=== PATIENT | female | born 1990 | race Caucasian/White ===

== ENCOUNTER 2024-06-18 10:08 | Outpatient (CLI) | payer OTHER | END 2024-06-18 11:02 | disposition home or self-care (01) | LOC: NST 10:08 | PROVIDERS: ATTEND Obstetrics & Gynecology | DX: Z3A.36 36 weeks gestation of pregnancy (principal) ==

== ENCOUNTER 2024-06-25 11:23 | Inpatient (IN) | payer OTHER ==
[~2024-06-25] VITALS: Ht 160 cm; Wt 3.2 kg
[2024-06-25 13:48] LABS: HEMATOCRIT 32.1 % (36.0-45.00); HEMOGLOBIN 10.7 g/dL (12.0-15.00); MEAN CELL VOLUME 81.4 fL (80.00-100.00); MEAN CORPUSCULAR HEMOGLOBIN 27.1 pg (27.00-32.0); MEAN CORPUSCULAR HGB CONC 33.3 g/dl (32.0-36.0); PLATELET COUNT 191 K/uL (150-450); RED BLOOD COUNT 3.95 M/uL (4.00-6.00); RED CELL DISTRIBUTION WIDTH 13.5 % (11.5-14.5)
[2024-06-25 14:06] LABS: PH,URINE 6.5 (5.0-8.0); URINE APPEARANCE Clear; URINE BILIRRUBIN Negative (NEGATIVE); URINE BLOOD Negative; URINE COLOR Yellow; URINE GLUCOSE Negative (NEGATIVE); URINE KETONE Negative (NEGATIVE); URINE LEUKOCYTE Negative; URINE NITRATE Negative; URINE PROTEIN Negative (NEGATIVE); URINE UROBILINOGEN 0.2 E.U./dl
[2024-06-25 14:09] LABS: URINE BACTERIA 1084.3 uL (0.0-1933); URINE EPITHELIAL CELLS 16.1 uL (0.0-38.8); URINE WBC 7.2 uL (0.0-23.2)
[2024-06-25 14:11] LABS: INR < 0.93; PARTIAL THROMBOPLASTIN TIME 23.8 SECONDS (22.0-34.0); PROTHROMBIN TIME 9.7 SECONDS (9.0-11.5)
[2024-06-25 14:58] LABS: ALBUMIN 2.8 gm/dL (3.4-5.0); BILIRUBIN TOTAL 0.58 mg/dL (0.3-1.2); CALCIUM 9.8 mg/dL (8.5-10.1); CREATININE SERUM 0.57 mg/dL (0.55-1.02); GFR 120.01; GLOBULINA 3.6 G/DL (2.4-3.5); POTASSIUM 4.24 mEq/L (3.5-5.1); TOTAL PROTEIN 6.4 gm/dL (6.4-8.2)
[2024-06-25 15:02] LABS: URINE RBC 1.4 uL (0.0-20.8)
[2024-07-07 07:16] VITALS: BP 127/80
[2024-07-07] MEDS ORDERED: CEFAZOLIN SODIUM 1,000 MG VIAL IV SCH (12:15)
[2024-07-07] MEDS ORDERED: OXYTOCIN 10 UNITS/ML VIAL IV SCH (12:15)
[2024-07-07] MEDS ORDERED: ERYTHROMYCIN BASE OPHT 1GM EACH TUBE OP SCH (12:15)
[2024-07-07] MEDS ORDERED: MORPHINE SULFATE 4 MG/ML CARTRIDGE IV PRN (12:15)
[2024-07-07] MEDS ORDERED: CITRIC ACID/SODIUM CITRATE 30 ML BLIST.PACK PO SCH (12:15)
[2024-07-07] MEDS ORDERED: OXYTOCIN 1,000 ML IV SCH (12:15)
[2024-07-07] MEDS ORDERED: MORPHINE SULFATE 4 MG/ML VIAL IV ONE ×2 (14:10→15:30)
[2024-07-07 18:37] VITALS: BP 135/72
[2024-07-08 01:15] VITALS: BP 136/71
[2024-07-08 09:00] VITALS: BP 125/77
[2024-07-08] MEDS ORDERED: IBUprofen 400 MG TABLET PO SCH (09:00)
[2024-07-08 11:28] LABS: HEMATOCRIT 28.8 % (36.0-45.00); HEMOGLOBIN 9.8 g/dL (12.0-15.00); MEAN CELL VOLUME 79.6 fL (80.00-100.00); MEAN CORPUSCULAR HEMOGLOBIN 27.1 pg (27.00-32.0); MEAN CORPUSCULAR HGB CONC 34.1 g/dl (32.0-36.0); PLATELET COUNT 181 K/uL (150-450); RED BLOOD COUNT 3.62 M/uL (4.00-6.00); RED CELL DISTRIBUTION WIDTH 13.9 % (11.5-14.5)
[2024-07-08 16:00] VITALS: BP 107/66
[2024-07-09 02:50] VITALS: BP 125/78
[2024-07-09] MEDS ORDERED: OxyCODONE HCL 5 MG TABLET (ROXICODONE) PO PRN (06:00)
[2024-07-09] MEDS ORDERED: IRON/V.C/V.B12/FOLIC A/VIT. E 1 CAPL CAPLET PO SCH (09:00)
[2024-07-09 09:49] VITALS: BP 132/75
[2024-07-09 18:26] VITALS: BP 122/78
[2024-07-10] VITALS: BP 115/67
[2024-07-10 07:56] VITALS: BP 136/77
[2024-07-10] MEDS ORDERED: OXYCODONE HCL5 MG PO (10:56)
[2024-07-10] MEDS ORDERED: KETO10TA2 PO (10:56)
== END 2024-07-10 13:04 | disposition home or self-care (01) | DRG 788 ==
LOC: LAB 11:23 → EDSTATUS 11:25 → OB/GYN 11:27 → O/R 07-07 06:40 → OB/GYN 07-07 06:40
PROVIDERS: ADMIT Obstetrics & Gynecology; ATTEND Obstetrics & Gynecology
PROC: 4A1HXCZ Monitoring of Products of Conception, Cardiac Rate, External Approach (ICD-10-PCS; 2024-07-07)
PROC: 10D00Z1 Extraction of Products of Conception, Low, Open Approach (ICD-10-PCS; principal; 2024-07-07 10:15)
DX: O34.211 Maternal care for low transverse scar from previous cesarean delivery (principal); Z3A.39 39 weeks gestation of pregnancy; Z37.0 Single live birth